=== PATIENT | female | born 1995 | race Caucasian/White ===

== ENCOUNTER 2016-06-04 01:52 | Emergency (ER) | payer OTHER ==
[~2016-06-04] VITALS: Ht 154.9 cm; Wt 88.5 kg
[~2016-06-04 01:52] MED LIST: AMOXICILLIN500 M1 PO; BIRTH CONTROL PO; ENDOCET 5-3251 EACH PO; IBUPROFEN800 MG PO; PRENATAL TABLE1 EAC3 PO; PROMETHAZINE HC25 M1 PO; ZOFRAN8 MG PO
[2016-06-04 02:34] LABS: HEMATOCRIT 34.5 % (36.0-46.0); MCH 30.7 PG (29.0-34.0); MCHC 34.5 G/DL (30.0-36.0); MCV 89.1 FL (83-99); MEAN PLAT.VOLUME 11.5 uM^3 (9.5-12.4); PLATELET COUNT 197 K/uL (156-360); RBC DIS.WIDTH-CV 13.4 % (11.8-14.6); RBC DIS.WIDTH-SD 42.8 % (39-53); RED BLOOD COUNT 3.87 M/uL (3.80-5.20); WHITE BLOOD COUNT 12.7 K/uL (4.1-10.2)
[2016-06-04 02:42] LABS: CHLORIDE 107 mEq/L (99-109); POTASSIUM 3.6 mEq/L (3.7-5.4); SODIUM 138 mEq/L (136-147)
[2016-06-04 02:45] LABS: GLUCOSE 120 mg/dL (70-99)
[2016-06-04 02:46] LABS: ANION GAP 11 MEQ/L (2-14)
[2016-06-04 02:47] LABS: TOTAL BILIRUBIN 0.6 mg/dL (0.0-1.0)
[2016-06-04 02:48] LABS: ALKALINE PHOSPHATASE 75 IU/L (3-129); GFR ESTIMATE (CALCULATED) > 59 mL/min/
[2016-06-04 02:50] LABS: UREA NITROGEN (BUN) 7 mg/dL (9-23)
[2016-06-04 03:07] LABS: D-DIMER ELISA 2.03 mg/L FEU (< 0.57)
[2016-06-04 03:17] LABS: QUANTITATIVE HCG 25804.6 MIU/ML
[2016-06-04] MEDS ORDERED: ZANTAC150 MG PO (04:25)
[2016-06-04 05:06] VITALS: BP 131/66
== END 2016-06-04 05:26 | disposition home or self-care (01) ==
LOC: EME 01:52
DX: O26.892 Other specified pregnancy related conditions, second trimester (principal); R10.13 Epigastric pain; R06.00 Dyspnea, unspecified; Z3A.19 19 weeks gestation of pregnancy
CPT/HCPCS: 71275; 80053; 81003; 84702; 85027; 85379; 93005; 99281; 99284; J7040

== ENCOUNTER 2016-10-27 15:22 | Inpatient (IN) | payer OTHER ==
[~2016-10-27] VITALS: Ht 154.9 cm; Wt 81.2 kg
[2016-10-27] VITALS (8 sets, daily range): BP systolic 121–136; BP diastolic 64–87
[~2016-10-27 15:22] MED LIST changes: +ZANTAC150 MG PO
[2016-10-27] MEDS ORDERED: MOTRIN800 MG PO (15:38)
[2016-10-28 07:05] LABS: BASOPHIL COUNT 0.1 K/uL (0-0.1); EOSINOPHIL COUNT 0.1 K/uL (0-0.3); HEMATOCRIT 29.5 % (36.0-46.0); IMMATURE GRANULOCYTE (%) 0.5 % (0.0-0.7); IMMATURE GRANULOCYTE COUNT 0.1 K/uL; INSTRUMENT ABS NEUTROPHIL CT 6.8 K/uL; LYMPHOCYTE COUNT 3.8 K/uL (1.0-2.8); MCH 28.4 PG (29.0-34.0); MCHC 31.9 G/DL (30.0-36.0); MCV 89.1 FL (83-99); MONOCYTE (%) 6.5 % (3-12); MONOCYTE COUNT 0.8 K/uL (0-0.8); NEUTROPHIL (%) 58.9 % (45-76); NEUTROPHIL COUNT 6.8 K/uL (1.8-6.4); PLATELET COUNT 225 K/uL (156-360); RBC DIS.WIDTH-CV 14.4 % (11.8-14.6); RBC DIS.WIDTH-SD 46.2 % (39-53); RED BLOOD COUNT 3.31 M/uL (3.80-5.20); WHITE BLOOD COUNT 11.5 K/uL (4.1-10.2)
[2016-10-28 07:11] VITALS: BP 122/71
[2016-10-28 15:31] VITALS: BP 125/77
[2016-10-28 23:17] VITALS: BP 119/69
[2016-10-29 07:25] VITALS: BP 109/61
[2016-10-29 15:20] VITALS: BP 106/67
== END 2016-10-29 17:55 | disposition home or self-care (01) | DRG 775 ==
LOC: LDRP-OP 15:22 → 2WEST 15:23 → LDRP-OP 11-25 13:43
PROVIDERS: Midwife
PROC: 10E0XZZ Delivery of Products of Conception, External Approach (ICD-10-PCS; principal; 2016-10-27)
DX: O62.3 Precipitate labor (principal); O99.824 Streptococcus B carrier state complicating childbirth; Z3A.40 40 weeks gestation of pregnancy; Z37.0 Single live birth; Z23 Encounter for immunization
CPT/HCPCS: 85025; J2590

== ENCOUNTER 2016-11-24 18:13 | Inpatient (IN) | payer OTHER ==
[~2016-11-24] VITALS: Ht 154.9 cm; Wt 75.5 kg
[~2016-11-24 18:13] MED LIST changes: +MOTRIN800 MG PO
[2016-11-24 19:00] LABS: ADD MIUA? YES; BILIRUBIN NEGATIVE; BLOOD NEGATIVE; COLOR YELLOW ((YELLOW)); GLUCOSE (STRIP) NEGATIVE; KETONES NEGATIVE; LEUKOCYTES SMALL; NITRITE NEGATIVE; PROTEIN (STRIP) NEGATIVE; SPECIFIC GRAVITY 1.016 (1.000-1.030); UROBILINOGEN 0.2 MG/DL (0.2-1.0)
[2016-11-24 19:07] LABS: BACTERIA NONE SEEN /HPF; EPITHELIAL CELLS 1+ /HPF; MUCUS TRACE /LPF; RED BLOOD CELLS 0-5 /HPF (0-5)
[2016-11-24 19:15] LABS: BASOPHIL COUNT 0.1 K/uL (0-0.1); EOSINOPHIL (%) 0.4 % (0-5); HEMATOCRIT 39.2 % (36.0-46.0); IMMATURE GRANULOCYTE (%) 0.3 % (0.0-0.7); INSTRUMENT ABS NEUTROPHIL CT 5.9 K/uL; LYMPHOCYTE COUNT 2.2 K/uL (1.0-2.8); MCH 27.9 PG (29.0-34.0); MCHC 31.6 G/DL (30.0-36.0); MCV 88.3 FL (83-99); MEAN PLAT.VOLUME 11.1 uM^3 (9.5-12.4); MONOCYTE (%) 7.3 % (3-12); MONOCYTE COUNT 0.7 K/uL (0-0.8); NEUTROPHIL (%) 66.3 % (45-76); NEUTROPHIL COUNT 5.9 K/uL (1.8-6.4); PLATELET COUNT 246 K/uL (156-360); RBC DIS.WIDTH-CV 14.6 % (11.8-14.6); RBC DIS.WIDTH-SD 46.8 % (39-53); RED BLOOD COUNT 4.44 M/uL (3.80-5.20); WHITE BLOOD COUNT 8.9 K/uL (4.1-10.2)
[2016-11-24 19:30] LABS: CHLORIDE 105 mEq/L (99-109); POTASSIUM 3.8 mEq/L (3.7-5.4); SODIUM 139 mEq/L (136-147)
[2016-11-24 19:32] LABS: GLUCOSE 93 mg/dL (70-99)
[2016-11-24 19:34] LABS: ANION GAP 9 MEQ/L (2-14); TOTAL BILIRUBIN 0.8 mg/dL (0.0-1.0)
[2016-11-24 19:36] LABS: ALKALINE PHOSPHATASE 168 IU/L (3-129); GFR ESTIMATE (CALCULATED) > 59 mL/min/
[2016-11-24 19:37] LABS: UREA NITROGEN (BUN) 12 mg/dL (9-23)
[2016-11-24 19:40] LABS: LIPASE 36 U/L (1.0-51.0)
[2016-11-24] MEDS ORDERED: COLACE100 MG PO (21:39)
[2016-11-24 22:07] LABS: QUANTITATIVE HCG < 4.0 MIU/ML
[2016-11-24 23:27] VITALS: BP 123/72
[2016-11-25 03:46] VITALS: BP 110/73
[2016-11-25 06:58] LABS: HEMATOCRIT 37.2 % (36.0-46.0); MCH 28.4 PG (29.0-34.0); MCHC 31.2 G/DL (30.0-36.0); MEAN PLAT.VOLUME 11.5 uM^3 (9.5-12.4); PLATELET COUNT 207 K/uL (156-360); RBC DIS.WIDTH-CV 14.6 % (11.8-14.6); RBC DIS.WIDTH-SD 48.9 % (39-53); RED BLOOD COUNT 4.09 M/uL (3.80-5.20); WHITE BLOOD COUNT 5.1 K/uL (4.1-10.2)
[2016-11-25 07:10] LABS: ALKALINE PHOSPHATASE 155 IU/L (3-129); ANION GAP 8 MEQ/L (2-14); CHLORIDE 110 MEQ/L (99-109); GFR ESTIMATE (CALCULATED) > 59 mL/min/; GLUCOSE 84 mg/dL (70-99); POTASSIUM 4.2 MEQ/L (3.7-5.4); SAMPLE HEMOLYSIS CHECK 0; SAMPLE ICTERIC CHECK 0; SAMPLE LIPEMIA CHECK 0; SODIUM 141 MEQ/L (136-147); TOTAL BILIRUBIN 1.3 MG/DL (0.0-1.0); UREA NITROGEN (BUN) 8 mg/dL (9-23)
[2016-11-25 08:00] VITALS: BP 119/80
[2016-11-25 12:33] VITALS: BP 116/76
[2016-11-25] MEDS ORDERED: OXYCODONE HCL5 MG PO (16:12)
[2016-11-25 16:20] VITALS: BP 137/80
[2016-11-25 20:45] VITALS: BP 127/62
[2016-11-26 00:22] VITALS: BP 138/75
[2016-11-26 03:53] VITALS: BP 116/65
[2016-11-26 07:15] LABS: HEMATOCRIT 35.5 % (36.0-46.0); MCH 28.4 PG (29.0-34.0); MCHC 31.8 G/DL (30.0-36.0); MCV 89.2 FL (83-99); MEAN PLAT.VOLUME 11.6 uM^3 (9.5-12.4); PLATELET COUNT 218 K/uL (156-360); RBC DIS.WIDTH-CV 14.8 % (11.8-14.6); RBC DIS.WIDTH-SD 48.6 % (39-53); RED BLOOD COUNT 3.98 M/uL (3.80-5.20); WHITE BLOOD COUNT 9.2 K/uL (4.1-10.2)
[2016-11-26 07:28] LABS: ALKALINE PHOSPHATASE 126 IU/L (3-129); ANION GAP 7 MEQ/L (2-14); CHLORIDE 108 MEQ/L (99-109); GFR ESTIMATE (CALCULATED) > 59 mL/min/; GLUCOSE 92 mg/dL (70-99); SAMPLE HEMOLYSIS CHECK 0; SAMPLE ICTERIC CHECK 0; SAMPLE LIPEMIA CHECK 0; SODIUM 140 MEQ/L (136-147); UREA NITROGEN (BUN) 3 mg/dL (9-23)
[2016-11-26 07:37] LABS: TOTAL BILIRUBIN 0.8 MG/DL (0.0-1.0)
[2016-11-26 07:53] VITALS: BP 128/76
[2016-11-26 11:56] VITALS: BP 118/71
== END 2016-11-26 13:17 | disposition home or self-care (01) | DRG 419 ==
LOC: 2EAST → EME 18:13 → EDOF 21:21 → 2EAST 21:21
PROVIDERS: Physician Assistant; Surgery
DX: K80.10 Calculus of gallbladder with chronic cholecystitis without obstruction (principal); R10.0 Acute abdomen; Q82.9 Congenital malformation of skin, unspecified; K82.8 Other specified diseases of gallbladder; O99.63 Diseases of the digestive system complicating the puerperium; R94.5 Abnormal results of liver function studies; R16.0 Hepatomegaly, not elsewhere classified
CPT/HCPCS: 74181; 74300; 76705; 80048; 80053; 81003; 83690; 84702; 85025; 85027; 88304; 99281; 99285; G0378; J0131; J1170; J2250; J2405; J2710; J2765; J3010; J7030